=== PATIENT | male | born 1945 | race Caucasian/White ===

== ENCOUNTER → 2016-07-04 | Outpatient (CLI) | payer MEDICARE | END | disposition home or self-care (01) | LOC: PCVCCLINIC 13:40 | PROVIDERS: ATTEND Internal Medicine | DX: I25.10 Atherosclerotic heart disease of native coronary artery without angina pectoris (principal); I25.5 Ischemic cardiomyopathy; I10 Essential (primary) hypertension; E78.00 Pure hypercholesterolemia, unspecified; I63.9 Cerebral infarction, unspecified; F20.0 Paranoid schizophrenia; I82.409 Acute embolism and thrombosis of unspecified deep veins of unspecified lower extremity; Z91.19 Patient's noncompliance with other medical treatment and regimen | CPT/HCPCS: 80061; 93005; G0463 ==